=== PATIENT | male | born 1935 | race Caucasian/White ===

== ENCOUNTER 2016-08-12 16:10 | Observation (INO) | payer MEDICARE, OTHER ==
[2016-08-12] MEDS ORDERED: NS 0.9% 1000 ML* 2,000 ML IV ONE (16:46)
[2016-08-12] MEDS ORDERED: Levofloxacin 750 MG IVPREMIX(* 750 MG/150 ML BAG IVPB ONE (16:48)
--- NOTE | 2016-08-12 17:25 | RAD ---
HISTORY: Cough, fever, pneumonia COMPARISONS: December 06, 2015 VIEWS: 2: Frontal dual-energy and lateral views of the chest. FINDINGS: CARDIOMEDIASTINAL SILHOUETTE: The aorta is tortuous. The cardiomediastinal silhouette is otherwise unremarkable. GINGER: The ginger are normal. PLEURA: The costophrenic angles are sharp. No pleural abnormalities are noted. LUNG PARENCHYMA: The lungs are clear. ABDOMEN: The upper abdomen is clear. There is no subphrenic gas. BONES AND SOFT TISSUES: Degenerative changes are noted along the spine. OTHER: None. IMPRESSION: NO ACTIVE CARDIOPULMONARY DISEASE.
[2016-08-12 18:28] LABS: Hematocrit 45 % (42-52); Mean Corpuscular HGB Conc 33 g/dl (31-36); Mean Corpuscular Hemoglobin 31 pg (27-31); Mean Corpuscular Volume 93 fL (80-94); Mean Platelet Volume 8 um3 (7.4-10.4); Red Blood Count 4.84 10^6/ul (4.0-5.4); Red Cell Distribution Width 14 % (10.5-15); White Blood Count 13.9 10^3/ul (3.5-10.8)
[2016-08-12 18:49] LABS: Albumin 4.5 g/dL (3.2-5.2); BUN/Creatinine Ratio 14.9 (8-20); C Reactive Protein 29.34 mg/L (< 5.00); Calcium 9.3 mg/dL (8.6-10.3); EGFR African American 98.6 (>60); EGFR Non-African American 76.6 (>60); Globulin 1.9 g/dL (2-4); Potassium 3.9 mmol/L (3.5-5.0); Total Protein 6.4 g/dL (6.4-8.9)
[2016-08-12 18:50] LABS: Troponin I 0.02 ng/mL (<0.04)
--- NOTE | 2016-08-12 18:57 | ED ---
Huang Porras Auryana, scribed for Perry Downey MD on 08/12/16 at 1800 . HPI Febrile Illness - HPI Summary HPI Summary: 81 year old male presents with fever and "bad cold" per patient starting 1 day ago. He also has a productive cough - few days, decreased appetite, increase urination, and increased fatigue but denies any vomiting, diarrhea, body/muscle aches, rhinorrhea, and chills. 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 No ABX the last few weeks and no blood thinners. He has had a flu shot this year. He states that "everybody is sick at [facility]" but does not know anyone that has been sick around him (no grandkids, etc). PMHx is significant for sepsis, first degree block and CABG, but no DM. SHx is significant for occasional alcohol but denies any tobacco use. - History of Current Complaint Chief Complaint: EDFever Time Seen by Provider: 08/12/16 16:21 Hx Obtained From: Patient Onset/Duration: Started Days Ago - q, Still Present Timing: Constant Temperature: 101 F - at PCP Initial Severity: Mild Current Severity: Moderate Pain Intensity: 0 Pain Scale Used: 0-10 Numeric Alleviating Factors: OTC Medicine - advil alleviated fever Associated Signs and Symptoms: Cough, Other: - increase fatigue, decreased appetite, and increase urination - Additional Pertinent History Primary Care Physician: [id number] - Allergy/Home Medications Allergies/Adverse Reactions: Allergies Allergy/AdvReac Type Severity Reaction Status Date / Time No Known Allergies Allergy Verified 08/12/16 16:15 PMH/Surg Hx/FS Hx/Imm Hx Cardiovascular History: Reports: Hx Hypertension, Other Cardiovascular Problems/ Disorders - 1st degree heart block Sensory History: Reports: Hx Contacts or Glasses, Hx Hearing Aid, Hx Hearing Problem Opthamlomology History: Reports: Hx Contacts or Glasses Neurological History: Reports: Other Neuro Impairments/Disorders - convulsion - - controlled with Tegretol Psychiatric History: Reports: Hx Bipolar Disorder - Surgical History Surgery Procedure, Year, and Place: Appendectomy 1944. 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 Negative: Chills Eyes: Negative Positive: Nasal Discharge Cardiovascular: Negative Respiratory: Negative Positive: Cough - productive Gastrointestinal: Negative Positive: Other - decreased appetite. Negative: Vomiting, Diarrhea Genitourinary: Negative Musculoskeletal: Negative Negative: Arthralgia, Myalgia Skin: Negative Neurological: Negative Psychological: Normal All Other Systems Reviewed And Are Negative: Yes Physical Exam - Summary Physical Exam Summary: The patient is well-nourished in no acute distress and in no acute pain. The skin is warm and slightly diaphoretic and skin color reflects adequate perfusion. No rashes. HEENT: The head is normocephalic and atraumatic. The pupils are equal and reactive. The conjunctivae are clear and without drainage. Nares are patent and with drainage. Mouth reveals moist mucous membranes and the throat is without erythema and exudate. The external ears are intact - patient has hearing aids Neck is supple with full range of motion and non-tender. There are no carotid bruits. There is no neck vein distension. Respiratory: Chest is non-tender. Lungs are clear to auscultation and breath sounds are symmetrical and equal. No rales, rhonchi, or wheezing. Cardiovascular: Heart is regular rate and rhythm- NOT TACHYCARDIC. There is no murmur or rub auscultated. There is no peripheral edema and pulses are symmetrical and equal. Abdomen: The abdomen is soft and non-tender. There are normal bowel sounds heard in all four quadrants and there is no organomegaly palpated. Musculoskeletal: There is no back pain noted. Extremities are non-tender with full range of motion. There is good capillary refill- 3 seconds. There is no peripheral edema or calf tenderness elicited. Neurological: Patient is alert and oriented to person, place and time. The patient has symmetrical motor strength in all four extremities. Cranial nerves are grossly intact. Deep tendon reflexes are symmetrical and equal in all four extremities. Psychiatric: The patient has an appropriate affect and does not exhibit any anxiety or depression. Triage Information Reviewed: Yes Vital Signs On Initial Exam: Initial Vitals Temp Pulse Resp BP Pulse Ox 98.8 F 94 16 138/70 99 08/12/16 16:12 08/12/16 16:12 08/12/16 16:12 08/12/16 16:12 08/12/16 16:12 Vital Signs Reviewed: Yes Diagnostics - Vital Signs Vital Signs Temp Pulse Resp BP Pulse Ox 08/12/16 16:12 98.8 F 94 16 138/70 99 - Laboratory Lab Results: Lab Results 08/12/16 08/12/16 08/12/16 Range/Units 18:15 18:15 18:15 WBC 13.9 H (3.5-10.8) 10^3/ul RBC 4.84 (4.0-5.4) 10^6/ul Hgb 15.0 (14.0-18.0) g/dl Hct 45 (42-52) % MCV 93 (80-94) fL MCH 31 (27-31) pg MCHC 33 (31-36) g/dl RDW 14 (10.5-15) % Plt Count 145 L (150-450) 10^3/ul MPV 8 (7.4-10.4) um3 Neut % (Auto) 87.7 H (38-83) % Lymph % (Auto) 7.5 L (25-47) % Vermillion % (Auto) 3.4 (1-9) % Eos % (Auto) 0.6 (0-6) % Baso % (Auto) 0.8 (0-2) % Absolute Neuts (auto) 12.2 H (1.5-7.7) 10^3/ul Absolute Lymphs (auto) 1.0 (1.0-4.8) 10^3/ul Absolute Monos (auto) 0.5 (0-0.8) 10^3/ul Absolute Eos (auto) 0.1 (0-0.6) 10^3/ul Absolute Basos (auto) 0.1 (0-0.2) 10^3/ul Absolute Nucleated RBC 0 10^3/ul Nucleated RBC % 0 ESR Pending Sodium 138 (133-145) mmol/L Potassium 3.9 (3.5-5.0) mmol/L Chloride 103 (101-111) mmol/L Carbon Dioxide 27 (22-32) mmol/L Anion Gap 8 (2-11) mmol/L BUN 14 (6-24) mg/dL Creatinine 0.94 (0.67-1.17) mg/dL Est GFR ( Amer) 98.6 (>60) Est GFR (Non-Af Amer) 76.6 (>60) BUN/Creatinine Ratio 14.9 (8-20) Glucose 120 H (70-100) mg/dL Lactic Acid 1.3 (0.5-2.0) mmol/L Calcium 9.3 (8.6-10.3) mg/dL Total Bilirubin 1.00 (0.2-1.0) mg/dL AST 20 (13-39) U/L ALT 27 (7-52) U/L Alkaline Phosphatase 57 (34-104) U/L Troponin I 0.02 (<0.04) ng/mL C-Reactive Protein 29.34 H (< 5.00) mg/L Total Protein 6.4 (6.4-8.9) g/dL Albumin 4.5 (3.2-5.2) g/dL Globulin 1.9 L (2-4) g/dL Albumin/Globulin Ratio 2.4 (1-3) Result Diagrams: 08/12/16 18:15 08/12/16 18:15 Lab Statement: Any lab studies that have been ordered have been reviewed, and results considered in the medical decision making process. - Radiology CXR Xray Interpretation: No Acute Changes Radiology Interpretation Completed By: Radiologist Re-Evaluation - Re-Evaluation First Eval Re-Evaluation Time: 18:00 - discussed labs, imaging and plan of action Change: Unchanged Course/Dx - Course Assessment/Plan: 81 year old male presents with fever and "bad cold" per patient starting 1 day ago. He also has a productive cough - few days, decreased appetite, increase urination, and increased fatigue but denies any vomiting, diarrhea, body/muscle aches, rhinorrhea, and chills. 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 No ABX the last few weeks and no blood thinners. He has had a flu shot this year. He states that "everybody is sick at [facility]" but does not know anyone that has been sick around him (no grandkids, etc). PMHx is significant for sepsis, first degree block and CABG. No PMHx for DM. Will order EKG, CXR, and labs. Will start ABX now. CXR negative. pending lab work. Likely admission for fever and possible sepsis. Sing out from Dr. Downey to Dr. Macario at 19:00 08/12/16 - Febrile Illness Differential Diagnoses: Bacteremia, Cellulitis, Fever of Unknown Origin, Pneumonia, Pyelonephritis, Sepsis, Other: - urinary tract infection - Diagnoses Provider Diagnoses: Fever - Provider Notifications Discussed Care Of Patient With: Keenan Uribe Time Discussed With Above Provider: 18:50 - agrees to admission Discharge - Discharge Plan Condition: Stable Disposition: ADMITTED TO [facility] Discharge Disposition Comment: pending UA Referrals: Douglas Pires MD [Primary Care Provider] - The documentation as recorded by the Huang castro Auryana accurately reflects the service I personally performed and the decisions made by Shayan leone Drew, MD.
[2016-08-12] MEDS ORDERED: Ibuprofen TAB* 600 MG PO PRN (19:17)
[2016-08-12] MEDS ORDERED: Acetaminophen TAB* 325 MG PO PRN (19:17)
[2016-08-12 19:44] LABS: Urine Bilirubin Negative (Negative); Urine Glucose Negative (Negative); Urine Nitrite Negative (Negative)
[2016-08-12 19:57] LABS: Erythrocyte Sed Rate 0 mm/Hr (0-40)
--- NOTE | 2016-08-12 21:39 | HP ---
CC: Dr. Pires HISTORY AND PHYSICAL: DATE OF ADMISSION: 08/12/16 TIME OF EVALUATION: 6:50 p.m. PRIMARY CARE PHYSICIAN: Dr. Pires. CHIEF COMPLAINT: Fever. HISTORY OF PRESENT ILLNESS: Mr. Cortés is an 81-year-old male with a past medical history of hyperten santos, hyperlipidemia, bipolar disorder, presbycusis that was sent to the emergency room by his [facility] provider due to fever. The patient states he was in his usual state of health until yesterday morning when he started to hudson ve copious clear rhinorrhea followed by some sore throat, malaise, and dry cough. He states that he continued to feel ill during the day. He could not sleep well last night and this morning had more malaise and weakness to the point that he did not want to get up from bed. The respiratory symptom s persisted and he also developed urinary symptoms. He states that he was having to get up to urina te every 10 minutes, but he denied dysuria. He did have some urinary incontinence. As he continued to feel poorly, he went to his PCP's office and he was found to have a temperature o f 101, so he was referred to the emergency room for further evaluation. Of note, the patient was ad mitted in November 2015 with altered mental status, fever, found to have sepsis and at that point, the source was an upper respiratory infection. PAST MEDICAL HISTORY: 1. Hypertension. 2. Hyperlipidemia. 3. Bipolar disorder. 4. Presbycusis. MEDICATIONS: Not available at this time but it will be confirmed. ALLERGIES: No known drug allergies. FAMILY HISTORY: Reviewed and noncontributory. SOCIAL HISTORY: There is no history of tobacco abuse. The patient occasionally drinks wine. He is . Lives with his at [facility]. 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 His is his up health system decision maker, Beth Cortés, phone number is [phone]. REVIEW OF SYSTEMS: A 14-point review of systems was performed and all the pertinent negative and po sitive findings are in the HPI. PHYSICAL EXAMINATION GENERAL: The patient is a pleasant elderly male, lying in the ER stretcher, in no acute distress. VITAL SIGNS: Temperature 99.8 (the patient received ibuprofen at his PCP's office), heart rate 84, respiratory rate 18, oxygen saturation 98% on room air, blood pressure is 145/87. HEENT: Pupils are equal. Moist mucous membranes. CHEST: Breath sounds present bilaterally with no added sounds. CVS: Normal S1, S2. Regular rate and rhythm. ABDOMEN: Soft, nontender, and nondistended. Bowel sounds are present. EXTREMITIES: No edema. NEUROLOGIC: He is alert, awake and oriented x3. Able to move all 4 extremities. LABORATORY AND IMAGING DATA: The patient had a CBC that showed WBC of 13.9, hemoglobin of 15, glenda tocrit of 45, platelet of 145 with 87% neutrophils. INR 0.87. Chemistry showed sodium 138, potassi um 3.9, chloride of 103, bicarb of 27, BUN of 14, creatinine of 0.94, glucose of 120, lactic acid of 1.3. LFTs are normal. CRP is 29.3. Influenza A and B were negative. At the time of this dictation, a urinalysis is ordered but has not yet been collected. Chest x-ray showed no active cardiopulmonary disease. EKG done on August 12 at 1831 showed sinus rhythm at 77 beats per minute with left bundle branch block . This is unchanged from his prior EKG from January 2016. ASSESSMENT AND PLAN: Mr. Cortés is an 81-year-old male with a past medical history of hypertension, h yperlipidemia, bipolar disorder who presents to the emergency room with complaints of fever and fuad ise. 1. Sepsis. The patient meets sepsis criteria on admission with fever, leukocytosis, and tachycardia . The source could be a viral upper respiratory infection considering his symptoms of rhinorrhea, sore throat, but he can also have a urinary tract infection as he has developed increased urinary freque ncy and urinary incontinence today. The patient will be admitted as observation to the medical floor. He is going to receive IV hydrati on and for the possibility of urinary tract infection, he is going to be treated with levofloxacin. Influenza rapid test was negative. He also received symptomatic treatment and supportive care. If his workup is unremarkable and he is feeling improved, the plan is for the patient to possibly be discharged tomorrow. 2. Hypertension. We are going to confirm his medication and continue. 3. Bipolar disorder. We are going to confirm his medication and continue. 4. DVT prophylaxis. The patient has a score of 3 on the DVT prophylaxis Risk Assessment Guide and he will be started on subcutaneous heparin. 4. Code status. The patient is a full code. TIME SPENT: Approximately 60 minutes was spent with the patient and interview, medical records review, physical examination to complete the admission and more than half of this time spent face-t o-face with the patient and coordination of care. [id number]/[facility] #: [id number]
[2016-08-12] MEDS: Heparin VIAL(*) 5000 UNITS/ML VIAL (FIVE THOUSAND) SUBCUT SCH (21:58)
[2016-08-12] MEDS: NS 0.9% 1000 ML* 1,000 ML IV SCH (21:58)
[2016-08-13] MEDS: Heparin VIAL(*) 5000 UNITS/ML VIAL (FIVE THOUSAND) SUBCUT SCH (05:54)
[2016-08-13 07:06] LABS: Hematocrit 40 % (42-52); Hemoglobin 13.5 g/dl (14.0-18.0); Mean Corpuscular HGB Conc 34 g/dl (31-36); Mean Corpuscular Hemoglobin 32 pg (27-31); Mean Corpuscular Volume 93 fL (80-94); Mean Platelet Volume 8 um3 (7.4-10.4); Red Blood Count 4.26 10^6/ul (4.0-5.4); Red Cell Distribution Width 14 % (10.5-15); White Blood Count 9.4 10^3/ul (3.5-10.8)
[2016-08-13 07:16] LABS: BUN/Creatinine Ratio 13.6 (8-20); Calcium 8.3 mg/dL (8.6-10.3); EGFR African American 82.2 (>60); EGFR Non-African American 63.9 (>60)
[2016-08-13] MEDS: NS 0.9% 1000 ML* 1,000 ML IV SCH (10:14)
[2016-08-13] MEDS ORDERED: amLODIPine TAB* 5 MG PO SCH (11:30)
[2016-08-13] MEDS ORDERED: carBAMazepine CHEW TAB(*) 100 MG PO SCH (11:30)
[2016-08-13 11:33] VITALS: BP 139/53
[2016-08-13] MEDS ORDERED: Aspirin Low Dose CHEW TAB* 81 MG PO SCH (12:00)
[2016-08-13] MEDS ORDERED: Atorvastatin* 20 MG TAB PO SCH (18:00)
[2016-08-13] MEDS ORDERED: Levofloxacin 500 MG IVPREMIX(* 500 MG/100 ML BAG IVPB SCH (18:00)
--- NOTE | 2016-08-14 04:37 | DS ---
DISCHARGE SUMMARY: DATE OF ADMISSION: 08/12/16 DATE OF DISCHARGE: 08/13/16 PRIMARY CARE PROVIDER: Douglas Pires MD DISCHARGE DIAGNOSIS: Sepsis, likely secondary to upper respiratory tract infection. SECONDARY DIAGNOSES: 1. Hypertension. 2. Hyperlipidemia. 3. Bipolar disorder. 4. Presbycusis. MEDICATION LIST: 1. Aspirin 81 mg p.o. daily. 2. Simvastatin 40 mg p.o. q.p.m. 3. Felodipine 10 mg p.o. daily. 4. Carbamazepine 100 mg p.o. daily. New medications: 1. Guaifenesin 10 mL p.o. q.4 hours p.r.n. cough. 2. Chloraseptic lozenge 1 by mouth q.2 hours p.r.n. sore throat. 3. Erythromycin 500 mg p.o. x1 dose then 250 mg p.o. daily for 4 days. 4. Acetaminophen 650 mg p.o. q.4 hours p.r.n. pain or fever. HOSPITAL COURSE: Mr. Cortés is an 81-year-old male with past medical history as stated above that presented to the emergency room yesterday with complaints of fever, sore throat, runny nose, and dry cough. For more details about his presentation, I refer you to his history and physical. His chest x-ray showed no acute pulmonary disease. Urinalysis was normal. The patient was admitted as observation with the impression of sepsis and URI for symptomatic treatment and monitoring. Influenza test was negative. He had improvement of his leukocytosis. He remained afebrile with stable vital signs while in the hospital. He was feeling improved today and the plan is for him to be discharged home on the above mentioned medications, to follow up with Dr. Pires next week. As the patient is concerned, he will not be able to make it in time for his trip to [facility] at the end of the month. He is medically stable to be discharged home at this time. PHYSICAL EXAMINATION: Vital Signs: Temperature 97.8, heart rate is 63, respiratory rate is 16, oxygen saturation is 98% on room air, and blood pressure 139/53. General: The patient is a pleasant elderly male, sitting up in a chair, in no acute distress. CVS: Normal S1, S2. Regular rate and rhythm. Chest: Breath sounds bilaterally with no added sounds. Abdomen: Soft. Bowel sounds are present. Neuro: He is alert, awake, and oriented x3. Able to move all 4 extremities. DIET: Low-salt diet. ACTIVITIES: As tolerated. DISPOSITION: To home. STATUS WHILE IN THE HOSPITAL: Observation. Please keep in mind that this is a summarized version of this patient's hospital stay. If you need more information, please feel free to call me at or please obtain the full medical records. TIME SPENT: Approximately 45 minutes was spent to complete this discharge. CC: Dr. Pires* [id number]/[facility] #: [id number]
== END 2016-08-13 12:56 | disposition home or self-care (01) ==
LOC: ED 16:10 → MED 19:15
PROVIDERS: ADMIT Internal Medicine; ATTEND Internal Medicine
DX: A41.9 Sepsis, unspecified organism (principal); J06.9 Acute upper respiratory infection, unspecified; I10 Essential (primary) hypertension; E78.5 Hyperlipidemia, unspecified; F31.9 Bipolar disorder, unspecified; H91.10 Presbycusis, unspecified ear; Z79.82 Long term (current) use of aspirin; Z79.899 Other long term (current) drug therapy
CPT/HCPCS: 36415; 71020; 80048; 80053; 81003; 83605; 84484; 85025; 85610; 85652; 85730; 86140; 87040; 87502; 93005; 96361; 96365; 96372; 99283; A9270-GY; G0378; J1644; J1956

== ENCOUNTER 2016-10-21 14:39 | Inpatient (IN) | payer MEDICARE, OTHER ==
--- NOTE | 2016-10-21 16:28 | RAD ---
INDICATION: Fever and weakness COMPARISON: Chest x-ray dated August 12, 2016 TECHNIQUE: Single AP portable view of the chest was obtained. FINDINGS: Image quality is compromised due to the relative inferiority of a portable chest x-ray. The heart and mediastinum exhibit normal size and contour. The lungs are grossly clear. There is no evidence of a large pleural effusion. Visualized bones are normal for the patient's age. IMPRESSION: No radiographic evidence for acute cardiopulmonary abnormality on this portable chest x-ray.
[2016-10-21 16:44] LABS: Hematocrit 47 % (42-52); Hemoglobin 15.5 g/dl (14.0-18.0); Mean Corpuscular HGB Conc 33 g/dl (31-36); Mean Corpuscular Hemoglobin 32 pg (27-31); Mean Corpuscular Volume 96 fL (80-94); Mean Platelet Volume 8 um3 (7.4-10.4); Red Blood Count 4.88 10^6/ul (4.0-5.4); Red Cell Distribution Width 14 % (10.5-15); White Blood Count 18.5 10^3/ul (3.5-10.8)
[2016-10-21 16:45] LABS: Add Diff/Slide Review? Slide Review Added; Comments Flag Yes
[2016-10-21 17:00] LABS: Albumin 4.5 g/dL (3.2-5.2); BUN/Creatinine Ratio 13.5 (8-20); C Reactive Protein 31.75 mg/L (< 5.00); Calcium 9.3 mg/dL (8.6-10.3); EGFR African American 81.4 (>60); EGFR Non-African American 63.3 (>60); Globulin 1.9 g/dL (2-4); Potassium 3.9 mmol/L (3.5-5.0); Total Bilirubin 1.4 mg/dL (0.2-1.0); Total Protein 6.4 g/dL (6.4-8.9)
[2016-10-21 17:09] LABS: Troponin I 0.04 ng/mL (<0.04)
[2016-10-21 17:10] LABS: Immature Granulocytes 7 % (0-9); Neutrophil % 85 % (38-83); RBC Morphology Normal (Normal); Toxic Granulation 1+
[2016-10-21] MEDS ORDERED: NS 0.9% 500 ML BAG* 500 ML IV ONE (18:11)
[2016-10-21 18:28] LABS: Urine Bacteria Absent (Absent); Urine Bilirubin Negative (Negative); Urine Glucose Negative (Negative); Urine Nitrite Negative (Negative)
[2016-10-21] MEDS: ceFAZolin 1 GM in Dextrose (*) 1 GM/50 ML BAG IVPB SCH (20:33)
[2016-10-21] MEDS: NS 0.9% 1000 ML* 1,000 ML IV SCH (20:37)
[2016-10-21] MEDS: Atorvastatin* 10 MG TAB PO SCH (20:46)
[2016-10-21] MEDS: Enoxaparin(*) 40 MG/0.4 ML SYR SUBCUT SCH (20:51)
--- NOTE | 2016-10-21 22:04 | PN ---
Progress Note - Progress Note Date of Service: 10/21/16 Note: Event note: Asked to review EKG. Patient admitted this evening with UTI/SIRS. Has borderline elevated troponin. EKG 08/12 shows LBBB, possible 2nd degree AV block, Weinkebach. Today's EKG shows junctional tachycardia, LBBB pattern, no P waves discerned. Will discuss with cardiology. Continue to cycle troponins until peaked.
[2016-10-22] MEDS: Acetaminophen TAB* 325 MG PO PRN (01:33)
[2016-10-22] MEDS: ceFAZolin 1 GM in Dextrose (*) 1 GM/50 ML BAG IVPB SCH ×3 (04:42→19:25)
[2016-10-22 05:38] LABS: Hematocrit 46 % (42-52); Hemoglobin 15.1 g/dl (14.0-18.0); Mean Corpuscular HGB Conc 33 g/dl (31-36); Mean Corpuscular Hemoglobin 32 pg (27-31); Mean Corpuscular Volume 96 fL (80-94); Mean Platelet Volume 8 um3 (7.4-10.4); Red Blood Count 4.73 10^6/ul (4.0-5.4); Red Cell Distribution Width 14 % (10.5-15); White Blood Count 15.5 10^3/ul (3.5-10.8)
[2016-10-22 05:58] LABS: Albumin 3.8 g/dL (3.2-5.2); BUN/Creatinine Ratio 15.2 (8-20); Calcium 8.3 mg/dL (8.6-10.3); EGFR African American 86.8 (>60); EGFR Non-African American 67.5 (>60); Globulin 1.9 g/dL (2-4); Total Bilirubin 1.1 mg/dL (0.2-1.0); Total Protein 5.7 g/dL (6.4-8.9)
[2016-10-22 06:10] LABS: Potassium 3.7 mmol/L (3.5-5.0)
[2016-10-22 06:46] LABS: Troponin I 0.1 ng/mL (<0.04)
[2016-10-22] MEDS: Aspirin EC Low Dose* 81 MG TAB.EC PO SCH (09:45)
[2016-10-22] MEDS: OXcarbazepine TAB(*) 300 MG PO SCH (09:45)
[2016-10-22] MEDS: amLODIPine TAB* 5 MG PO SCH (09:45)
[2016-10-22] MEDS: NS 0.9% 1000 ML* 1,000 ML IV SCH (09:54)
--- NOTE | 2016-10-22 10:13 | PN ---
Subjective Date of Service: 10/22/16 Interval History: ?Rhythm change overnight and some IL changes. Patient seen this morning. Fever overnight. Feeling better now. Says ankle is feeling improved, still slightly tender but not as much as yesterday. No chest pain or SOB reported. Family History: Unchanged from Admission Social History: Unchanged from Admission Past Medical History: Unchanged from Admission Objective Active Medications: Acetaminophen (Tylenol Tab*) 650 mg PO Q4H PRN Amlodipine Besylate (Norvasc Tab*) 10 mg PO DAILY HATTIE Aspirin (Aspirin Ec Low Dose*) 81 mg PO DAILY HATTIE Atorvastatin Calcium (Lipitor*) 10 mg PO BEDTIME HATTIE Enoxaparin Sodium (Lovenox(*)) 40 mg SUBCUT Q24H [facility] Sodium Chloride (Ns 0.9% 1000 Ml*) 1,000 mls @ 100 mls/hr IV PER RATE HATTIE Cefazolin Sodium/Dextrose (Kefzol 1 Gm In Dextrose Duplex (*)) 1 gm in 50 mls @ 200 mls/hr IVPB Q8H HATTIE Oxcarbazepine (Trileptal Tab(*)) 300 mg PO DAILY [facility] Vital Signs 10/21/16 10/21/16 10/21/16 18:00 19:00 19:56 Temperature 99.5 F Pulse Rate 90 87 100 Respiratory 24 16 26 Rate Blood Pressure 132/89 153/79 (mmHg) O2 Sat by Pulse 98 100 90 Oximetry 10/22/16 10/22/16 10/22/16 00:42 01:41 03:31 Temperature 102.8 F 99.5 F Pulse Rate 91 89 69 Respiratory 24 16 Rate Blood Pressure 132/91 125/64 (mmHg) O2 Sat by Pulse 98 95 Oximetry 10/22/16 07:37 Temperature 100.4 F Pulse Rate 58 Respiratory 16 Rate Blood Pressure 141/65 (mmHg) O2 Sat by Pulse 99 Oximetry Oxygen Devices in Use Now: None Appearance: Elderly, M, laying in bed in NAD Eyes: No Scleral Icterus Ears/Nose/Mouth/Throat: Mucous Membranes Moist Neck: NL Appearance and Movements; NL JVP Respiratory: Symmetrical Chest Expansion and Respiratory Effort, Clear to Auscultation Cardiovascular: NL Sounds; No Murmurs; No JVD, RRR Abdominal: NL Sounds; No Tenderness; No Distention Lymphatic: No Cervical Adenopathy Extremities: No Edema Skin: - - No erythema noted today on L lateral ankle, still TTP, no edema, no warmth Neurological: Alert and Oriented x 3 Result Diagrams: 10/22/16 04:45 10/22/16 04:45 Assess/Plan/Problems-Billing Assessment: Sepsis 2/2 LLE cellulitis in an 81 yo M with hx of HTN, HLD, 1st degree HB/mild tachy/sarath - Patient Problems (1) Sepsis Current Visit: Yes Comment: Source not clear on admission but I think this may have been very early stages of LLE cellulitis. Procalcitonin was elevated. Still with some fevers overnight. Continue IV Ancef. L ankle seems to be improving. Continue IVF for now. WBC improving, bandemia resolved. (2) Elevated troponin Current Visit: Yes Comment: Suspect this is demand ischemia from sepsis. No chest pain. Continue to trend to peak. Echo tomorrow. (3) AV block Current Visit: Yes Comment: Patient has hx of 1st degree AV block however IL interval longer at this point (>400s). At times seems that patient may have been in junctional rhythm but P waves may have just been buried in previous T waves. There are episodes however when the P waves appears closer to the QRS and then progressively lengthen. Have asked Cardiology to evaluate. (4) Hyponatremia Current Visit: Yes Comment: Na dropped overnight with IVF. Will check Constanza, UOsm, SOsm. Will stop IVF, ?SIADH from trileptal. (5) HLD (hyperlipidemia) Current Visit: Yes Comment: Continue statin (6) HTN (hypertension) Current Visit: Yes Comment: Continue amlodipine (7) Bipolar disorder Current Visit: Yes Comment: Continue Trileptal for now (8) DVT prophylaxis Current Visit: Yes Comment: Continue Lovenox
--- NOTE | 2016-10-22 14:22 | HP ---
CC: Dr. Pires HISTORY AND PHYSICAL: DATE OF ADMISSION: 10/21/16 PRIMARY CARE PHYSICIAN: Dr. Pires. CHIEF COMPLAINT: Fever and weakness. HISTORY OF PRESENT ILLNESS: Mr. Cortés is an 81-year-old man with past medical history of hypertensio n, hyperlipidemia, bipolar disorder, presbycusis left bundle branch block, BPH, ADHD, who presents t o the hospital with fever and weakness. The patient states she was in his usual state of health thr ough yesterday. He woke up this morning early, got out of bed to get a cup of coffee and noticed he was chillier than normal, put on his bathrobe, had a cup of coffee, and could not seem to get warm. He said he went back to bed, fell asleep for 2 hours and then he woke up and felt profoundly weak. He felt that he could not even get out of bed. He and his are residents at [facility] and they p ulled the cord in the room to summon the nurse who took his temperature and was reportedly 103. EMS was called and the patient was brought to the hospital. The patient denies any cough. He said he had some rhinorrhea this morning that seem to resolve. Denies any sore throat, chest pain, abdomina l pain, nausea, vomiting. Has had urinary urgency for some time but had some incontinence today. H e is not sure if this was due to the urgency getting worse or the fact that he was weak and just cou ld not get to the toilet in the time he usually does. He denies any dysuria. His also reporte d that he was complaining of some left ankle pain that started this morning as well. In the emergency department, the patient states he no longer feels feverish and is not feeling as we ak as he was this morning. He was found to have an elevated white blood cell count of 18 with a lef t shift and 7% bands as well as troponin of 0.04. Due to this, hospitalist service was consulted to consider the patient for admission. PAST MEDICAL HISTORY: 1. Hypertension. 2. Hyperlipidemia. 3. Bipolar disorder. 4. Presbycusis. 5. Left bundle branch block. 6. ADHD. 7. BPH. 8. ALEJANDRO. PAST SURGICAL HISTORY: 1. Appendectomy. 2. Mastoidectomy. HOME MEDICATIONS: 1. Oxcarbazepine 300 mg by mouth daily. 2. Simvastatin 20 mg by mouth at bedtime. 3. Mupirocin 1 application topical 3 times daily as needed for rash. 4. Felodipine 10 mg by mouth daily. 5. Aspirin 81 mg by mouth daily. ALLERGIES: No known drug allergies. FAMILY HISTORY: Significant for father with CHF, mother with stroke. 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 Denies any tobacco use in h is life. No illicit drug use. Will have one drink a few times a week. REVIEW OF SYSTEMS: A 12-point review of systems is negative except for that as noted in the HPI. PHYSICAL EXAMINATION GENERAL: The patient is an elderly man, lying in bed, in no apparent distress. VITAL SIGNS: On admission, temperature 99.7, heart rate of 104, respiratory rate of 18, O2 saturati on 91% on room air. Blood pressure 141/96. HEENT: Head normocephalic, atraumatic. Eyes: Pupils equal, round, and reactive to light and accom modation. Anicteric sclerae. ENT: Dry mucous membranes. No posterior oropharyngeal edema. No ce rvical adenopathy. No sinus tenderness on palpation. LUNGS: Clear to auscultation bilaterally. No wheezes, rales or rhonchi. CARDIOVASCULAR: Regular rate and rhythm. S1 and S2 present. No murmurs, gallops, or rubs. ABDOMEN: Obese, soft, nontender, nondistended. Bowel sounds positive. EXTREMITIES: No cyanosis, clubbing or edema. SKIN: The patient has faintly erythematous spot on his left lateral ankle that is tender to palpati on for about 2 to 3 cm in diameter. There is no warmth or edema. NEUROLOGIC: The patient is alert and oriented x3. No focal neurological deficits, some hearing imp airment. LABORATORY DATA/DIAGNOSTIC STUDIES: White blood cell count of 18.5, hematocrit of 47, platelets of 132, left shift with 93% neutrophils and 7% bands, INR of 0.94. Sodium of 136, potassium 3.9, chlor meaghan of 100, carbon dioxide 27, BUN of 15, creatinine 1.11, glucose of 130, lactic acid of 1.8, total bilirubin of 1.4, AST of 33, ALT of 34, alk phos 47, troponin of 0.04, CRP of 31.75. Chest x-ray, personally reviewed, shows no acute disease. ASSESSMENT AND PLAN: Fever, weakness, systemic inflammatory response syndrome criteria with a mild troponin elevation in 81-year-old man with a past medical history of hypertension, hyperlipidemia, b ipolar disorder, presbycusis, left bundle branch block, attention deficit hyperactivity disorder, be nign prostatic hyperplasia and obstructive sleep apnea. 1. Fever, systemic inflammatory response syndrome criteria, etiology is not clear at this point. T he patient does have a significant white blood cell count with a left shift. Chest x-ray is clear. UA is still pending. I have add on a procalcitonin as well. This could potentially just be a britney l infection. I am not convinced with the patient's left ankle has anything to do with it, it does n ot appear to be cellulitic but we will keep an eye on the area to see if there is any progression as well as this could be a very early cellulitis. We will give the patient 500 cc bolus and keep him on 100 cc of normal saline over night. Recheck his CBC and CMP in the morning. Continue to monitor for indication for antibiotics. 2. Troponin elevation. The patient denying any chest pain at all. No EKG has been done, order one right now. We will continue to trend his troponins, may just be slight demand ischemia from his fe liseth and increased metabolic state. We will monitor on telemetry. 3. Hypertension. Continue home calcium channel aaron. 4. Hyperlipidemia. Continue statin. 5. Bipolar disorder. Continue oxcarbazepine. 6. DVT prophylaxis. Lovenox subcutaneously 7. Code status: The patient is full code. TIME SPENT: Total time spent on this admission 45 minutes with over half the time spent face-to-fac e with the patient in counseling and coordinating care. [id number]/[facility] #: [id number]
--- NOTE | 2016-10-22 17:35 | CONS ---
CC: Hospitalist Service; Dr. Ewing; Dr. Bolanos; Dr. Pires CARDIOLOGY CONSULT: DATE OF CONSULT: 10/22/16 PRIMARY CARE PHYSICIAN: Dr. Pires. HISTORY OF PRESENT ILLNESS: I was asked by hospitalist service to see this 81-year- old male patien t who presented to the hospital form [facility] with symptoms of fever, chills, and for treatment for an infection. Apparently, the source of infection possibly could be cellulitis of the lower extremiti es. From the notes from Dr. Bolanos, his primary second miller, the patient does have known histor y of chronic left bundle branch block, first-degree AV block, and history of murmur. There is borde rline mild tachy-sarath syndrome according to the notes. There is no history of coronary artery dise ase. No history of myocardial infarction. No history of congestive heart failure. The patient had during this hospitalization some first- degree AV block with rate variation and also troponin that is reported to be initially 0.05, then 0.10, then did go down to 0.08. He is chest pain free. Becau se of that, it felt probably related to his infection, cardiology consult was further requested. Th e patient does have initial temperature actually of 99.5, but it did go up to 102.8. The source pro bably is cellulitis. He gives no chest pain, no fever, no chills, no orthopnea, no PND, no dizzines s, no syncope, no nausea, no vomiting, no tachycardia, no hematochezia is appreciated. 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 He was evaluated by Dr. Gooden in 2 011 for a watchful waiting. He had a history of murmur, felt to be aortic sclerosis. He does have past medical history, also history of attention deficit, bipolar affective disorder, hypertension, h yperlipidemia, erectile dysfunction, LVH, obstructive sleep apnea, first-degree AV block. Other med ical history includes middle ear excision, appendicectomy, and mastoidectomy. MEDICATIONS AN OUTPATIENT: Include: 1. Aspirin 81 mg daily. 2. Felodipine 10 mg daily. 3. Simvastatin 20 mg daily. ALLERGIES: No known drug allergies. FAMILY HISTORY: No family history of premature coronary artery disease. SOCIAL HISTORY: No history of smoking. No drinking. No history of illicit drug use. REVIEW OF SYSTEMS: Review of all other systems essentially is negative. PHYSICAL EXAM: On exam, he is elderly, frail, but he is not in acute distress. Vitals: Blood press ure 132/90, pulse 90. He is in sinus rhythm with first-degree AV block. Temperature 102.8. Head a nd Neck Exam: Normocephalic, atraumatic. Ears, nose, and throat essentially benign. Neck: Supple. JVP is not elevated. No carotid bruits. No masses in the neck is appreciated. Chest: Clear to a uscultation. No rales, no wheezes, no added sounds appreciated. Heart: Murmur. Regular S1, S2. N o added sounds, no gallops, no rubs. Grade 2/6 systolic murmur in the left sternal border. Abdomen : Benign, positive bowel sounds. Extremities: No edema, no cyanosis, no clubbing. Skin Exam: Nor mal. Psych: Normal affect and mood. 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 Examination of the lowe r extremities, skin appears to be warmth, someone concerned about cellulitis. DIAGNOSTIC STUDIES/LAB DATA: White blood cell 15.5, hemoglobin 15.1, hematocrit 46, and platelets 1 20. Sodium 128, potassium 3.7, chloride 99, total CO2 of 21, BUN 16, creatinine 1.05. Troponin pea k 0.10, he is chest pain free, it did go down to 0.08 at 11:22 this morning. LFTs; AST 55, ALT norm al. EKG showed the patient to be in left bundle branch block and normal sinus rhythm and first-degr ee AV block. IMPRESSION: The patient is an 81-year-old with: 1. Known history of left bundle branch block, first-degree AV block from before with questionable t achy-sarath syndrome that is mild. 2. Mildly elevated troponin. The patient is chest pain free, probably related to his acute febrile illness and cellulitis. 3. Fever with probably cellulitis. 4. Abnormal EKG as prescribed. 5. Systemic arterial hypertension. 6. Hyperlipidemia. 7. Hyponatremia. 8. Hypokalemia. PLAN: I have discussed him with hospitalist service. At the present time, there is no need for fur ther urgent cardiac testing. The patient is chest pain free. He had a chronic left bundle branch b lock. His troponin is only mildly elevated at 0.10 probably related to his acute febrile illness an d tachycardia. We will follow up to evaluate his left ventricular systolic regional wall motion and occult thyroid disease. I strongly advised antibiotic treatment, hydration, electrolytes correctio ns especially his potassium and sodium, keep a close eye on that. He is not in congestive heart faye lure on physical exam. He has no active angina. His first-degree AV block is not new. I advised c ontinue monitoring for any second or third degree AV block, which is not there yet since he was hosp italized. TIME SPENT: I spent a lengthy time with him explaining all the above. I answered all his concerns and questions up to his satisfaction. More than half of at least 60 plus minutes was in education a nd counseling mode, [id number]. Thank you very much for asking us to participate in the care of this patient. [id number]/[facility] #: [id number]
--- NOTE | 2016-10-22 18:19 | ED ---
Lou Porras Alok, scribed for Juaquin Macario MD on 10/21/16 at 1553 . HPI Febrile Illness - HPI Summary HPI Summary: 81M presents to the ED for fever and weakness since this morning. The pt reportedly woke up this morning and was took weak to get out of bed, later having his temperature taken to be 103 F this afternoon. Pt notes urinary incontinence and urgency since yesterday and today. Pt also notes ankle pain bilaterally. Pt denies cough, rhinorrhea, or diarrhea. Pt denies dysuria. PMHx includes h/o sepsis 3 years ago. - History of Current Complaint Chief Complaint: EDWeakness Time Seen by Provider: 10/21/16 15:22 Hx Obtained From: Patient Onset/Duration: Started Hours Ago, Atraumatic, Still Present Timing: Constant Temperature: 103 F Initial Severity: Moderate Current Severity: Moderate Pain Intensity: 6 Pain Scale Used: 0-10 Numeric Aggravating Factors: Nothing Alleviating Factors: Nothing Associated Signs and Symptoms: Weakness - Additional Pertinent History Primary Care Physician: BECKA - Allergy/Home Medications Allergies/Adverse Reactions: Allergies Allergy/AdvReac Type Severity Reaction Status Date / Time No Known Allergies Allergy Verified 08/12/16 16:15 Home Medications: Home Medications Aspirin EC Low Dose* [Ecotrin EC Low Dose 81 MG*] 81 mg PO DAILY 10/21/16 [ History Confirmed 10/21/16] Felodipine (NF) [Plendil (NF)] 10 mg PO DAILY 10/21/16 [History Confirmed ] Mupirocin 2% OINT* [Bactroban 2 % Oint*] 1 applic TOPICAL TID PRN 10/21/16 [ History Confirmed 10/21/16] OXcarbazepine TAB(*) [Trileptal 300 mg TAB(*)] 300 mg PO DAILY 10/21/16 [ History Confirmed 10/21/16] Simvastatin TAB(NF) [Zocor(NF)] 20 mg PO BEDTIME 10/21/16 [History Confirmed ] PMH/Surg Hx/FS Hx/Imm Hx Cardiovascular History: Reports: Hx Hypertension, Other Cardiovascular Problems/ Disorders - 1st degree heart block Sensory History: Reports: Hx Contacts or Glasses, Hx Hearing Aid, Hx Hearing Problem Opthamlomology History: Reports: Hx Contacts or Glasses Neurological History: Reports: 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 Bilat ear surgeries Hx Anesthesia Reactions: No Infectious Disease History: No Infectious Disease History: Reports: Hx Shingles Denies: Traveled Outside the [place] in Last 30 Days - Family History Known Family History: Negative: Hypertension - Social History Occupation: Retired Alcohol Use: None Alcohol Amount: LEVEL 5 CAVEAT secondary to AMS Hx Substance Use: No Substance Use Type: Reports: None Smoking Status (MU): Never Smoked Tobacco Review of Systems Positive: Fever Negative: Nasal Discharge Negative: Cough Negative: Diarrhea Positive: incontinence - urinary, urgency - urinary. Negative: dysuria Positive: Other - ankle pain bilaterally Positive: Weakness All Other Systems Reviewed And Are Negative: Yes Physical Exam Triage Information Reviewed: Yes Vital Signs On Initial Exam: Initial Vitals BP 141/96 10/21/16 15:11 Vital Signs Reviewed: Yes Appearance: Positive: Well-Appearing, No Pain Distress Skin: Positive: Warm, Skin Color Reflects Adequate Perfusion, Dry Head/Face: Positive: Normal Head/Face Inspection Eyes: Positive: Normal ENT: Positive: Normal ENT inspection Neck: Positive: Supple, Nontender Respiratory/Lung Sounds: Positive: Clear to Auscultation, Breath Sounds Present Cardiovascular: Positive: RRR Abdomen Description: Positive: Nontender, Soft Bowel Sounds: Positive: Present Musculoskeletal: Positive: Normal Neurological: Positive: Normal Psychiatric: Positive: Normal, Affect/Mood Appropriate - [place] Coma Scale Coma Scale Total: 15 Diagnostics - Vital Signs Vital Signs Temp Pulse Resp BP Pulse Ox 10/21/16 15:16 99.7 F 105 18 141/96 91 10/21/16 15:13 9 10/21/16 15:11 141/96 - Laboratory Lab Results: Lab Results 10/21/16 10/21/16 10/21/16 Range/Units 16:31 16:31 16:31 WBC 18.5 H (3.5-10.8) 10^3/ul RBC 4.88 (4.0-5.4) 10^6/ul Hgb 15.5 (14.0-18.0) g/dl Hct 47 (42-52) % MCV 96 H (80-94) fL MCH 32 H (27-31) pg MCHC 33 (31-36) g/dl RDW 14 (10.5-15) % Plt Count 132 L (150-450) 10^3/ul MPV 8 (7.4-10.4) um3 Immature Gran % (Auto) 7 (0-9) % Neut % (Auto) 93.7 H (38-83) % Lymph % (Auto) 2.9 L (25-47) % [place] % (Auto) 3.1 (1-9) % Eos % (Auto) 0 (0-6) % Baso % (Auto) 0.3 (0-2) % Absolute Neuts (auto) 17.4 H (1.5-7.7) 10^3/ul Absolute Lymphs (auto) 0.5 L (1.0-4.8) 10^3/ul Absolute Monos (auto) 0.6 (0-0.8) 10^3/ul Absolute Eos (auto) 0 (0-0.6) 10^3/ul Absolute Basos (auto) 0 (0-0.2) 10^3/ul Absolute Nucleated RBC 0.01 10^3/ul Neutrophils % 85 H (38-83) % Band Neutrophils % 7 (0-8) % Lymphocytes % 3 L (25-47) % Monocytes % 5 (0-13) % Nucleated RBC % 0.1 Toxic Granulation 1+ Normal RBC Morphology Normal (Normal) INR (Anticoag Therapy) 0.94 (0.89-1.11) Sodium 136 (133-145) mmol/L Potassium 3.9 (3.5-5.0) mmol/L Chloride 100 L (101-111) mmol/L Carbon Dioxide 27 (22-32) mmol/L Anion Gap 9 (2-11) mmol/L BUN 15 (6-24) mg/dL Creatinine 1.11 (0.67-1.17) mg/dL Est GFR ( Amer) 81.4 (>60) Est GFR (Non-Af Amer) 63.3 (>60) BUN/Creatinine Ratio 13.5 (8-20) Glucose 130 H (70-100) mg/dL Lactic Acid (0.5-2.0) mmol/L Calcium 9.3 (8.6-10.3) mg/dL Magnesium (1.9-2.7) mg/dL Total Bilirubin 1.40 H (0.2-1.0) mg/dL AST 33 (13-39) U/L ALT 34 (7-52) U/L Alkaline Phosphatase 47 (34-104) U/L Troponin I 0.04 H* (<0.04) ng/mL C-Reactive Protein 31.75 H (< 5.00) mg/L Total Protein 6.4 (6.4-8.9) g/dL Albumin 4.5 (3.2-5.2) g/dL Globulin 1.9 L (2-4) g/dL Albumin/Globulin Ratio 2.4 (1-3) Procalcitonin (<0.6) ng/mL Urine Color Urine Appearance Urine pH (5-9) Ur Specific [place] (1.010-1.030) Urine Protein (Negative) Urine Ketones (Negative) Urine Blood (Negative) Urine Nitrate (Negative) Urine Bilirubin (Negative) Urine Urobilinogen (Negative) Ur Leukocyte Esterase (Negative) Urine WBC (Auto) (Absent) Urine RBC (Auto) (Absent) Urine Bacteria (Absent) Ur Random Sodium mmol/L Urine Glucose (Negative) 10/21/16 10/21/16 10/21/16 Range/Units 16:31 16:31 18:17 WBC (3.5-10.8) 10^3/ul RBC (4.0-5.4) 10^6/ul Hgb (14.0-18.0) g/dl Hct (42-52) % MCV (80-94) fL MCH (27-31) pg MCHC (31-36) g/dl RDW (10.5-15) % Plt Count (150-450) 10^3/ul MPV (7.4-10.4) um3 Immature Gran % (Auto) (0-9) % Neut % (Auto) (38-83) % Lymph % (Auto) (25-47) % [place] % (Auto) (1-9) % Eos % (Auto) (0-6) % Baso % (Auto) (0-2) % Absolute Neuts (auto) (1.5-7.7) 10^3/ul Absolute Lymphs (auto) (1.0-4.8) 10^3/ul Absolute Monos (auto) (0-0.8) 10^3/ul Absolute Eos (auto) (0-0.6) 10^3/ul Absolute Basos (auto) (0-0.2) 10^3/ul Absolute Nucleated RBC 10^3/ul Neutrophils % (38-83) % Band Neutrophils % (0-8) % Lymphocytes % (25-47) % Monocytes % (0-13) % Nucleated RBC % Toxic Granulation Normal RBC Morphology (Normal) INR (Anticoag Therapy) (0.89-1.11) Sodium (133-145) mmol/L Potassium (3.5-5.0) mmol/L Chloride (101-111) mmol/L Carbon Dioxide (22-32) mmol/L Anion Gap (2-11) mmol/L BUN (6-24) mg/dL Creatinine (0.67-1.17) mg/dL Est GFR ( Amer) (>60) Est GFR (Non-Af Amer) (>60) BUN/Creatinine Ratio (8-20) Glucose (70-100) mg/dL Lactic Acid 1.8 (0.5-2.0) mmol/L Calcium (8.6-10.3) mg/dL Magnesium (1.9-2.7) mg/dL Total Bilirubin (0.2-1.0) mg/dL AST (13-39) U/L ALT (7-52) U/L Alkaline Phosphatase (34-104) U/L Troponin I (<0.04) ng/mL C-Reactive Protein (< 5.00) mg/L Total Protein (6.4-8.9) g/dL Albumin (3.2-5.2) g/dL Globulin (2-4) g/dL Albumin/Globulin Ratio (1-3) Procalcitonin 2.8 H (<0.6) ng/mL Urine Color Yellow Urine Appearance Clear Urine pH 7.0 (5-9) Ur Specific [place] 1.014 (1.010-1.030) Urine Protein 2+(100 mg/dl) H (Negative) Urine Ketones 1+ H (Negative) Urine Blood 2+ H (Negative) Urine Nitrate Negative (Negative) Urine Bilirubin Negative (Negative) Urine Urobilinogen Negative (Negative) Ur Leukocyte Esterase Negative (Negative) Urine WBC (Auto) Absent (Absent) Urine RBC (Auto) Trace(0-2/hpf) (Absent) Urine Bacteria Absent (Absent) Ur Random Sodium mmol/L Urine Glucose Negative (Negative) 10/21/16 10/21/16 10/22/16 Range/Units 20:22 23:28 04:45 WBC 15.5 H (3.5-10.8) 10^3/ul RBC 4.73 (4.0-5.4) 10^6/ul Hgb 15.1 (14.0-18.0) g/dl Hct 46 (42-52) % MCV 96 H (80-94) fL MCH 32 H (27-31) pg MCHC 33 (31-36) g/dl RDW 14 (10.5-15) % Plt Count 120 L (150-450) 10^3/ul MPV 8 (7.4-10.4) um3 Immature Gran % (Auto) (0-9) % Neut % (Auto) 89.4 H (38-83) % Lymph % (Auto) 6.7 L (25-47) % [place] % (Auto) 3.6 (1-9) % Eos % (Auto) 0.1 (0-6) % Baso % (Auto) 0.2 (0-2) % Absolute Neuts (auto) 13.9 H (1.5-7.7) 10^3/ul Absolute Lymphs (auto) 1.0 (1.0-4.8) 10^3/ul Absolute Monos (auto) 0.6 (0-0.8) 10^3/ul Absolute Eos (auto) 0 (0-0.6) 10^3/ul Absolute Basos (auto) 0 (0-0.2) 10^3/ul Absolute Nucleated RBC 0.01 10^3/ul Neutrophils % (38-83) % Band Neutrophils % (0-8) % Lymphocytes % (25-47) % Monocytes % (0-13) % Nucleated RBC % 0 Toxic Granulation Normal RBC Morphology (Normal) INR (Anticoag Therapy) (0.89-1.11) Sodium (133-145) mmol/L Potassium (3.5-5.0) mmol/L Chloride (101-111) mmol/L Carbon Dioxide (22-32) mmol/L Anion Gap (2-11) mmol/L BUN (6-24) mg/dL Creatinine (0.67-1.17) mg/dL Est GFR ( Amer) (>60) Est GFR (Non-Af Amer) (>60) BUN/Creatinine Ratio (8-20) Glucose (70-100) mg/dL Lactic Acid (0.5-2.0) mmol/L Calcium (8.6-10.3) mg/dL Magnesium (1.9-2.7) mg/dL Total Bilirubin (0.2-1.0) mg/dL AST (13-39) U/L ALT (7-52) U/L Alkaline Phosphatase (34-104) U/L Troponin I 0.05 H* 0.07 H* (<0.04) ng/mL C-Reactive Protein (< 5.00) mg/L Total Protein (6.4-8.9) g/dL Albumin (3.2-5.2) g/dL Globulin (2-4) g/dL Albumin/Globulin Ratio (1-3) Procalcitonin (<0.6) ng/mL Urine Color Urine Appearance Urine pH (5-9) Ur Specific [place] (1.010-1.030) Urine Protein (Negative) Urine Ketones (Negative) Urine Blood (Negative) Urine Nitrate (Negative) Urine Bilirubin (Negative) Urine Urobilinogen (Negative) Ur Leukocyte Esterase (Negative) Urine WBC (Auto) (Absent) Urine RBC (Auto) (Absent) Urine Bacteria (Absent) Ur Random Sodium mmol/L Urine Glucose (Negative) 10/22/16 10/22/16 10/22/16 Range/Units 04:45 11:22 13:40 WBC (3.5-10.8) 10^3/ul RBC (4.0-5.4) 10^6/ul Hgb (14.0-18.0) g/dl Hct (42-52) % MCV (80-94) fL MCH (27-31) pg MCHC (31-36) g/dl RDW (10.5-15) % Plt Count (150-450) 10^3/ul MPV (7.4-10.4) um3 Immature Gran % (Auto) (0-9) % Neut % (Auto) (38-83) % Lymph % (Auto) (25-47) % [place] % (Auto) (1-9) % Eos % (Auto) (0-6) % Baso % (Auto) (0-2) % Absolute Neuts (auto) (1.5-7.7) 10^3/ul Absolute Lymphs (auto) (1.0-4.8) 10^3/ul Absolute Monos (auto) (0-0.8) 10^3/ul Absolute Eos (auto) (0-0.6) 10^3/ul Absolute Basos (auto) (0-0.2) 10^3/ul Absolute Nucleated RBC 10^3/ul Neutrophils % (38-83) % Band Neutrophils % (0-8) % Lymphocytes % (25-47) % Monocytes % (0-13) % Nucleated RBC % Toxic Granulation Normal RBC Morphology (Normal) INR (Anticoag Therapy) (0.89-1.11) Sodium 128 L D (133-145) mmol/L Potassium 3.7 (3.5-5.0) mmol/L Chloride 99 L (101-111) mmol/L Carbon Dioxide 21 L (22-32) mmol/L Anion Gap 8 (2-11) mmol/L BUN 16 (6-24) mg/dL Creatinine 1.05 (0.67-1.17) mg/dL Est GFR ( Amer) 86.8 (>60) Est GFR (Non-Af Amer) 67.5 (>60) BUN/Creatinine Ratio 15.2 (8-20) Glucose 125 H (70-100) mg/dL Lactic Acid (0.5-2.0) mmol/L Calcium 8.3 L (8.6-10.3) mg/dL Magnesium 2.0 (1.9-2.7) mg/dL Total Bilirubin 1.10 H (0.2-1.0) mg/dL AST 55 H (13-39) U/L ALT 30 (7-52) U/L Alkaline Phosphatase 42 (34-104) U/L Troponin I 0.10 H* 0.08 H* (<0.04) ng/mL C-Reactive Protein (< 5.00) mg/L Total Protein 5.7 L (6.4-8.9) g/dL Albumin 3.8 (3.2-5.2) g/dL Globulin 1.9 L (2-4) g/dL Albumin/Globulin Ratio 2.0 (1-3) Procalcitonin (<0.6) ng/mL Urine Color Urine Appearance Urine pH (5-9) Ur Specific [place] (1.010-1.030) Urine Protein (Negative) Urine Ketones (Negative) Urine Blood (Negative) Urine Nitrate (Negative) Urine Bilirubin (Negative) Urine Urobilinogen (Negative) Ur Leukocyte Esterase (Negative) Urine WBC (Auto) (Absent) Urine RBC (Auto) (Absent) Urine Bacteria (Absent) Ur Random Sodium 33 mmol/L Urine Glucose (Negative) Result Diagrams: 10/22/16 04:45 10/22/16 04:45 Lab Statement: Any lab studies that have been ordered have been reviewed, and results considered in the medical decision making process. - Radiology CXR Xray Interpretation: Positive (See Comments) - IMPRESSION: No radiographic evidence for acute cardiopulmonary abnormality on this portable chest x-ray. Radiology Interpretation Completed By: Radiologist Course/Dx - Course Course Of Treatment: Nr. Hand came in feeling very weak and reporting a near syncopal episode. He was found to have a leukocytosis and an indeterminant troponin. The ospitalist service was consulted for admission. - Diagnoses Provider Diagnoses: Elevated troponin, Leukocytosis, Weakness - Provider Notifications Discussed Care Of Patient With: Sriram Esposito - Will admit pt to [facility] Time Discussed With Above Provider: 18:00 Discharge - Discharge Plan Condition: Stable Disposition: ADMITTED TO [facility] documentation as recorded by the Lou castro Alok accurately reflects the service I personally performed and the decisions made by , Juaquin Macario MD.
[2016-10-22] MEDS: Enoxaparin(*) 40 MG/0.4 ML SYR SUBCUT SCH (19:23)
[2016-10-22] MEDS: Atorvastatin* 10 MG TAB PO SCH (20:41)
[2016-10-23] MEDS: ceFAZolin 1 GM in Dextrose (*) 1 GM/50 ML BAG IVPB SCH ×2 (04:09→12:05)
[2016-10-23 05:29] LABS: Hematocrit 42 % (42-52); Hemoglobin 14.3 g/dl (14.0-18.0); Mean Corpuscular HGB Conc 34 g/dl (31-36); Mean Corpuscular Hemoglobin 32 pg (27-31); Mean Corpuscular Volume 95 fL (80-94); Mean Platelet Volume 8 um3 (7.4-10.4); Red Blood Count 4.48 10^6/ul (4.0-5.4); Red Cell Distribution Width 14 % (10.5-15); White Blood Count 9.9 10^3/ul (3.5-10.8)
[2016-10-23 05:30] LABS: Add Diff/Slide Review? Slide Review Added; Comments Flag Yes
[2016-10-23 05:32] LABS: BUN/Creatinine Ratio 17.8 (8-20); Calcium 8.4 mg/dL (8.6-10.3); EGFR African American 90.7 (>60); EGFR Non-African American 70.5 (>60); Potassium 3.8 mmol/L (3.5-5.0)
[2016-10-23] MEDS: Aspirin EC Low Dose* 81 MG TAB.EC PO SCH (09:32)
[2016-10-23] MEDS: OXcarbazepine TAB(*) 300 MG PO SCH (09:32)
[2016-10-23] MEDS: amLODIPine TAB* 5 MG PO SCH (09:32)
[2016-10-23] MEDS: Acetaminophen TAB* 325 MG PO PRN (10:22)
--- NOTE | 2016-10-23 12:09 | PN ---
Subjective Date of Service: 10/23/16 Interval History: Patient seen this morning. Reports some erythema and swelling in the L ankle today but pain about the same or better than yesterday. No further fevers. Long discussion with the patient and his about cellulitis, previous hospitalizations, a lot of which was discussed yesterday as well. Family History: Unchanged from Admission Social History: Unchanged from Admission Past Medical History: Unchanged from Admission Objective Active Medications: Acetaminophen (Tylenol Tab*) 650 mg PO Q4H PRN Amlodipine Besylate (Norvasc Tab*) 10 mg PO DAILY HATTIE Aspirin (Aspirin Ec Low Dose*) 81 mg PO DAILY HATTIE Atorvastatin Calcium (Lipitor*) 10 mg PO BEDTIME HATTIE Enoxaparin Sodium (Lovenox(*)) 40 mg SUBCUT Q24H HATTIE Cefazolin Sodium/Dextrose (Kefzol 1 Gm In Dextrose Duplex (*)) 1 gm in 50 mls @ 200 mls/hr IVPB Q8H HATTIE Oxcarbazepine (Trileptal Tab(*)) 300 mg PO DAILY [facility] Vital Signs 10/22/16 10/22/16 10/22/16 15:46 20:00 20:22 Temperature 98.8 F 99.3 F Pulse Rate 61 58 Respiratory 18 17 20 Rate Blood Pressure 121/55 141/63 (mmHg) O2 Sat by Pulse 97 96 96 Oximetry 10/23/16 10/23/16 10/23/16 00:16 04:11 08:00 Temperature 98.2 F 98.4 F Pulse Rate 66 59 Respiratory 20 20 16 Rate Blood Pressure 153/73 139/75 (mmHg) O2 Sat by Pulse 96 100 93 Oximetry 10/23/16 08:09 Temperature 99.0 F Pulse Rate 53 Respiratory 16 Rate Blood Pressure 135/62 (mmHg) O2 Sat by Pulse 93 Oximetry Oxygen Devices in Use Now: None Appearance: Elderly, M, laying in chair in NAD Eyes: No Scleral Icterus Ears/Nose/Mouth/Throat: Mucous Membranes Moist Neck: NL Appearance and Movements; NL JVP Respiratory: Symmetrical Chest Expansion and Respiratory Effort, Clear to Auscultation Cardiovascular: - - Bradycardia, no m/g/r Abdominal: NL Sounds; No Tenderness; No Distention Lymphatic: No Cervical Adenopathy Extremities: - - Mild L ankle edema Skin: - - Mild erythema over L ankle, TTP, no warmth Neurological: - - Alert, oriented, no focal deficits Result Diagrams: 10/23/16 05:08 10/23/16 05:08 Assess/Plan/Problems-Billing Assessment: Sepsis 2/2 LLE cellulitis in an 81 yo M with hx of HTN, HLD, 1st degree HB/mild tachy/sarath - Patient Problems (1) Sepsis Current Visit: Yes Comment: Suspect cellulitis, some mild erythema and swelling today. Patient was able to ambulate, receiving tylenol for pain. Leukocytosis resolved, no further fevers. (2) Elevated troponin Current Visit: Yes Comment: Suspect this is demand ischemia from sepsis. No chest pain. Continue to trend to peak. Echo pending. (3) AV block Current Visit: Yes Comment: Appreciate Cardiology assistance. Dr. Ewing does not feel there is anything off of the patient's baseline. Echo today. (4) Hyponatremia Current Visit: Yes Comment: Na normalized after stopping IVF (5) HLD (hyperlipidemia) Current Visit: Yes Comment: Continue statin (6) HTN (hypertension) Current Visit: Yes Comment: Continue amlodipine (7) Bipolar disorder Current Visit: Yes Comment: Continue Trileptal (8) DVT prophylaxis Current Visit: Yes Comment: Continue Lovenox Status and Disposition: Potential discharge today
--- NOTE | 2016-10-23 12:35 | ECHO ---
Patient: CHRISTINE VAZQUEZ [facility] Rec#: [id number] : 1935 Date: 10/23/2016 Age: 81y Height: 172.72 cm / 68.0 in Weight: 76.2 kg / 167.9 lbs Sex: M BSA: 1.9 Room#: 434 Admit Date#: 10/22/2016 Type: Inpatient Referring: Gio Ewing MD Reading: Gio Ewing MD [employer] Helper: Allyson Patricia URIAH CC: Douglas Pires MD Transthoracic Echocardiogram Indication: Abn EKG/murmur BP: 139/75 HR: 58 Rhythm: Bradycardia Findings History: LBBB,first degree AV block,bipolar,HTN,HLD,LVH,ALEJANDRO. Left Ventricle: The left ventricular chamber size is normal. Septal wall hypertrophy is observed. Global left ventricular wall motion and contractility are within normal limits. There is normal left ventricular systolic function. The estimated ejection fraction is 50-55%. There is paradoxical septal wall motion abnormality secondary to conduction abnormality. There is mid-apical lateral wall and inferior wall motion abnormality. Abnormal left ventricular diastolic function is observed. Left Atrium: The left atrial chamber size is normal. Right Ventricle: The right ventricular cavity size is normal. The right ventricular global systolic function is normal. Right Atrium: The right atrial cavity size is normal. Aortic Valve: The aortic valve is trileaflet. The aortic valve leaflets are mildly thickened. There is evidence of aortic sclerosis without stenosis. There is no evidence of aortic regurgitation. Mitral Valve: The mitral valve leaflets are mildly thickened. There is mild mitral regurgitation. There is no evidence of mitral stenosis. Tricuspid Valve: The tricuspid valve leaflets are normal. There is mild to moderate tricuspid regurgitation. There is evidence of mild pulmonary hypertension. There is no tricuspid stenosis. Pulmonic Valve: The pulmonic valve appears normal. There is a trace pulmonic regurgitation. There is no pulmonic stenosis. Pericardium: A pericardial fat pad is visualized. Aorta: There is no dilatation of the ascending aorta. There is no dilatation of the aortic arch. There is no dilation of the aortic root. Pulmonary Artery: The main pulmonary artery appears normal. Venous: The venous system is not well visualized. Summary: There was not any prior study for comparison. Conclusions Septal wall hypertrophy is observed. Global left ventricular wall motion and contractility are within normal limits. The estimated ejection fraction is 50-55%. There is paradoxical septal wall motion abnormality secondary to conduction abnormality. There is mid-apical lateral wall and inferior wall motion abnormality. There is mild mitral regurgitation. There is mild to moderate tricuspid regurgitation. There is evidence of mild pulmonary hypertension. There is a trace pulmonic regurgitation. Measurements Name Value Normal Range RVIDd (AP) 2D 3 cm (0.9 - 2.6) RVDdMajor (2D) 3.6 cm (2.2 - 4.4) RAd ISD 4CH 5.5 cm (3.4 - 4.9) RA (A4C)W 3.1 cm (2.9 - 4.6) IVSd (2D) 1.3 cm (0.6 - 1) LVPWd (2D) 0.9 cm (0.6 - 1) LVIDd (2D) 3.7 cm (3.6 - 5.4) LVIDs (2D) 2.7 cm - LV FS (2D) 27 % (25 - 45) Aortic Annulus 2 cm (1.4 - 2.6) Ao root diameter (2D) 3.1 cm (2.1 - 3.5) Ascending Ao 2.5 cm (2.1 - 3.4) Aortic arch 2.4 cm (1.8 - 3.4) Descending Ao 0.4 cm - LA dimension (AP) 2D 3.4 cm (2.3 - 3.8) LAd ISD 4CH 5.2 cm (2.9 - 5.3) LA ISD 4CH W 3.2 cm (2.5 - 4.5) Name Value Normal Range LA ESV SP 4CH (A/L) 45 ml - LA ESV SP 2CH (A/L) 53 ml - LA ESV BP (A/L) 50 ml - LA ESV BP (A/L) index 26.53 ml/m2 - LA ESV SP 4CH (MOD) 43 ml - LA ESV SP 2CH (MOD) 50 ml - Name Value Normal Range MV E-wave Vmax 1.1 m/sec - MV deceleration time 225 msec - MV A-wave Vmax 1.2 m/sec - MV E:A ratio 0.88 ratio - LV septal e' Vmax 0.05 m/sec - LV lateral e' Vmax 0.09 m/sec - LV E:e' septal ratio 22 ratio - LV E:e' lateral ratio 12.22 ratio - Name Value Normal Range AV Vmax 1.4 m/sec - AV VTI 30.1 cm - AV peak gradient 7.43 mmHg - AV mean gradient 3.61 mmHg - LVOT Vmax 1.1 m/sec - LVOT VTI 22 cm - LVOT peak gradient 4.91 mmHg - LVOT mean gradient 2.24 mmHg - Name Value Normal Range TR Vmax 2.8 m/sec - TR peak gradient 30 mmHg - RAP 8 mmHg - RVSP 38 mmHg - Name Value Normal Range PV Vmax 0.9 m/sec - PV peak gradient 2.89 mmHg -
[2016-10-23 16:48] VITALS: BP 129/54
--- NOTE | 2016-10-24 03:06 | DS ---
CC: Dr. Pires; Dr. Ki Bolanos, Cardiology * DISCHARGE SUMMARY: DATE OF ADMISSION: 10/21/16 DATE OF DISCHARGE: 10/23/16 PCP: Dr. Pires. PRINCIPAL DISCHARGE DIAGNOSES: 1. Sepsis secondary to lower extremity cellulitis. 2. Demand-mediated non-ST elevation myocardial infarction. SECONDARY DIAGNOSES: 1. Hypertension. 2. Hyperlipidemia. 3. Bipolar disorder. 4. History of first-degree AV block and left bundle-branch block. CONSULTANTS DURING HOSPITALIZATION: Dr. Ewing, Cardiology. STUDIES DONE DURING HOSPITALIZATION: Chest x-ray, impression: No radiographic evidence for acute cardiopulmonary abnormality. Transthoracic echocardiogram, conclusion: Septal wall hypertrophy is observed. Global left ventricular wall motion and contractility are within normal limits. The estimated ejection fraction is 50% to 55%. There is paradoxical septal wall motion abnormality secondary to conduction abnormality. There is mid apicolateral wall and inferior wall motion abnormality. There is mild mitral regurgitation, mild to moderate tricuspid regurgitation, evidence of mild pulmonary hypertension, trace pulmonic regurgitation. DISCHARGE MEDICATION REGIMEN: 1. Keflex 250 mg by mouth 4 times daily. 2. Acetaminophen 650 mg every 6 hours as needed for pain. 3. Aspirin 81 mg by mouth daily. 4. Felodipine 10 mg by mouth daily. 5. Mupirocin 1 application topical 3 times daily as needed for rash. 6. Simvastatin 20 mg by mouth at bedtime. 7. Oxcarbazepine 300 mg by mouth daily. HPI AND HOSPITAL SUMMARY: Please see my full history and physical for full details. Briefly, Mr. Cortés is an 81-year-old male with a past medical history as above, who presented to the hospital with fever and significant weakness as well as left ankle pain. The patient states the symptoms began very rapidly the morning of admission. He felt profoundly weak and had trouble getting out of bed. It was only later that he noticed he was having some left ankle pain. In the emergency department, he was found to have an elevated white blood cell count of 18 with 7% bands and a mild troponin elevation. He had a very small erythematous area on the left lateral ankle. He denied any chest pain. The patient was admitted to the floor. Procalcitonin was checked, which was elevated at 2.8. His urinalysis and chest x-ray were normal. He was started on IV Ancef for presumed early cellulitis. On the following days, the patient's white blood cell count normalized. His troponins continued to trend up and peaked at 0.10. He was also noted to have abnormalities on his telemetry. The patient had a known first-degree AV block; however, his IL interval here in the hospital was in the high 400s. It seemed like at times he was in a junctional rhythm; however, this may have just been when his heart rate was a bit higher, his P waves were buried in the previous T waves; however, there were some times on telemetry where it seemed like he had buried P waves and subsequently would see a P wave prior to QRS with a normal interval and over the following beats, it would prolong back to his previous first-degree AV block. Due to these issues, I called Cardiology and Dr. Ewing evaluated the patient and he felt that it was consistent with his previous diagnoses of first-degree AV block, left bundle-branch block and mild tachy-sarath syndrome. He did recommend an echocardiogram, which was done as above that did not show anything too concerning. During the hospitalization, the patient did develop a little edema around the left ankle and foot and it remained tender; however, seemed to get better each day. He remained afebrile for over 24 hours prior to discharge. I felt that he would do okay at home with oral antibiotics. He was discharged with a prescription for Keflex and should follow up with his PCP and Dr. Bolanos, his staffing director, as an outpatient. We will defer to Dr. Bolanos whether the patient will benefit from outpatient stress test. TIME SPENT: Total time spent on this discharge was 60 minutes. This is a summary of the hospitalization. Please see the full medical record for further details. [id number]/[facility] #: [id number] [facility]
== END 2016-10-23 16:20 | disposition home or self-care (01) | DRG 872 ==
LOC: ED 14:39 → UNDOADMOB 17:48 → MEDTELE 17:48 → OBSVTOIN 10-22 14:14 → INTOOBSV 10-22 14:14 → OBSVTOIN 10-22 14:41 → MEDTELE 10-22 14:41
PROVIDERS: ADMIT Hospitalist; ATTEND Hospitalist
DX: A41.9 Sepsis, unspecified organism (principal); L03.119 Cellulitis of unspecified part of limb; I44.7 Left bundle-branch block, unspecified; E87.1 Hypo-osmolality and hyponatremia; I10 Essential (primary) hypertension; E78.5 Hyperlipidemia, unspecified; F31.9 Bipolar disorder, unspecified; I44.0 Atrioventricular block, first degree; N40.0 Benign prostatic hyperplasia without lower urinary tract symptoms; E87.6 Hypokalemia; F90.9 Attention-deficit hyperactivity disorder, unspecified type; R74.8 Abnormal levels of other serum enzymes; H91.10 Presbycusis, unspecified ear; Z79.82 Long term (current) use of aspirin; Z79.899 Other long term (current) drug therapy; Z82.3 Family history of stroke; Z82.49 Family history of ischemic heart disease and other diseases of the circulatory system
CPT/HCPCS: 36415; 71010; 80048; 80053; 81003; 81015; 83605; 83735; 83930; 83935; 84145; 84300; 84484; 85025; 85610; 86140; 87040; 93005; 93306; A9270-GY; G0378; J0690; J1650

== ENCOUNTER 2018-06-13 13:38 | Emergency (ER) | payer MEDICARE, OTHER ==
[2018-06-13 14:13] LABS: Influenza A Molecular NEGATIVE (Negative); Influenza B Molecular NEGATIVE (Negative)
--- NOTE | 2018-06-13 14:49 | UC ---
General HPI - HPI Summary HPI Summary: 83 yo WM c/o weakness and "being out of balance" x 1 week. Per pt has had URI sx about 1 week ago but denies any f/c/n/v/SOB or CP. Per pt walks on a walker but pt has been so weak that he thinks he will lose balance. Denies cough CP/SOB/dizziness or urinary sx - History of Current Complaint Chief Complaint: UCGeneralIllness Stated Complaint: COLD/ UNABLE TO WALK Time Seen by Provider: 06/13/18 13:50 Pain Intensity: 0 - Allergy/Home Medications Allergies/Adverse Reactions: Allergies Allergy/AdvReac Type Severity Reaction Status Date / Time No Known Allergies Allergy Verified 12/20/16 10:12 PMH/Surg Hx/FS Hx/Imm Hx - Surgical History Surgical History: Yes Surgery Procedure, Year, and Place: Appendectomy 1944. Bilat mastoid surgery due to infection in 193s. rt ear exploratory- no procedure done - Family History Known Family History: Positive: Unknown - LEVEL 5 CAVEAT secondary to AMS Negative: Hypertension - Social History Alcohol Use: None Alcohol Amount: LEVEL 5 CAVEAT secondary to AMS Substance Use Type: None Smoking Status (MU): Never Smoked Tobacco - Immunization History Most Recent Influenza Vaccination: fall 2015 Most Recent Pneumonia Vaccination: unknown Review of Systems All Other Systems Reviewed And Are Negative: Yes Constitutional: Positive: Negative Skin: Positive: Negative Eyes: Positive: Negative ENT: Positive: Negative Respiratory: Positive: Negative Cardiovascular: Positive: Negative Gastrointestinal: Positive: Negative Genitourinary: Positive: Negative Motor: Positive: Weakness Musculoskeletal: Positive: Negative Neurological: Positive: Weakness Psychological: Positive: Negative Physical Exam - Summary Physical Exam Summary: Vital Signs Reviewed: Yes Skin: Positive: Warm Head/Face: Positive: Normal Head/Face Inspection Eyes: Positive: Normal ENT: Positive: Normal ENT inspection, dry MM Neck: Positive: Supple Respiratory/Lung Sounds: Positive: Clear to Auscultation, NO wheezes, rales, rhonchi Cardiovascular: Positive: Normal, RRR, S1, S2 Abdomen Description: Positive: Nontender Musculoskeletal: Positive: Normal Neurological: Positive: CN 2-12 grossly intact strength 5/5 in UE and 4/5 in LE and symmetrical, no sensory deficits, NO facial asymmetry noted Psychiatric: Positive: Normal, Affect/Mood Appropriate Triage Information Reviewed: Yes Vital Signs: Initial Vital Signs Temp 36.6 C 06/13/18 13:49 Pulse 77 06/13/18 13:49 Resp 18 06/13/18 13:49 BP 162/79 06/13/18 13:49 Pulse Ox 95 06/13/18 13:49 Course/Dx - Course Course Of Treatment: Weakness and fatigue- CT head neg, UA neg, cxr RLL/haziness , i suspect evolving PNA. Ceftin PO 500 x1 in UC given, then rest to be picked up in pharmacy.Pt lives in [facility], pleads pt NOT go to ER if he still is persistently weak but that he be seen by the staff MD there who is readily available to see the pt who is a resident there. - Diagnoses Provider Diagnosis: Pneumonia, Fatigue Discharge - Sign-Out/Discharge Documenting (check all that apply): Patient Departure All imaging exams completed and their final reports reviewed: Yes - Discharge Plan Condition: Stable Disposition: HOME Prescriptions: ceFUROXime TAB(*) [Ceftin TAB 250 MG(*)] 500 mg PO BID 7 Days #14 tab Patient Education Materials: Pneumonia (ED) Referrals: Hermelindo Mitchell MD [Primary Care Provider] - - Billing Disposition and Condition Condition: STABLE Disposition: Home
[2018-06-13] MEDS ORDERED: ceFUROXime TAB(*) 250 MG PO ONE (14:53)
[2018-06-13] MEDS ORDERED: NS 0.9% 500 ML* 500 ML IV ONE (16:01)
[2018-06-13 17:31] VITALS: BP 166/79
== END 2018-06-13 17:31 | disposition home or self-care (01) ==
LOC: UCEAST 13:38
DX: J18.9 Pneumonia, unspecified organism (principal); R53.83 Other fatigue
CPT/HCPCS: 70450; 71046; 81003; 87651; 99212; G0463